=== PATIENT | male | born 1995 | race Caucasian/White ===

== ENCOUNTER 2017-05-23 22:10 | Emergency (ER) | payer SELFPAY ==
[~2017-05-23] VITALS: Ht 157.5 cm; Wt 60.0 kg
[2017-05-23 22:17] VITALS: BP 122/82; PULSE 88; RESP 15; TEMP 98.8; O2SAT 97
[2017-05-23 22:22] VITALS: BP 121/72; PULSE 82; RESP 15; TEMP 98.3; O2SAT 98
--- NOTE | 2017-05-23 23:21 | PD ---
HPI Chief Complaint: Complaint Time Seen by Provider: 23:21 Travel History International Travel<30 days: No Contact w/Intl Traveler<30days: No Traveled to known affect area: No PFSH Past Medical History Medical History: Denies Significant Hx Diminished Hearing: No Past Surgical History Surgical History: No Previous Surgery Social History Alcohol Use: Yes Tobacco Use: No Substance Use: Yes (marijuana) Allergies-Medications (Allergen,Severity, Reaction): Coded Allergies: No Known Allergies (Unverified , 05/23/17) Reported Meds & Prescriptions Reported Meds & Active Scripts Active Levaquin (Levofloxacin) 750 Mg Tablet 1 Tab PO DAILY 14 Days Data Data Last Documented VS Vital Signs Date Time Temp Pulse Resp B/P Pulse Ox O2 Delivery O2 Flow Rate FiO2 05/24/17 00:21 98.5 68 16 116/62 100 05/23/17 22:22 Room Air Orders Us Testicles W Doppler (05/23/17 ) MDM Scripts Levofloxacin (Levaquin)750 Mg Tablet1 Tab PO DAILY 14 Days Ref 0 Prov:Anant Ortiz MD 05/24/17 Candice Garcia May 23, 2017 23:21
--- NOTE | 2017-05-23 23:54 | RADRPT ---
EXAM DATE/TIME: 05/23/2017 23:20 [facility] COMPARISON: No previous studies available for comparison. INDICATIONS : Left testicular pain. MEDICAL HISTORY : Alcohol use. Substance use. Testicular pain. SURGICAL HISTORY : None. ENCOUNTER: Initial ACUITY: 3 days PAIN SCORE: 6/10 LOCATION: Bilateral testicles. MEASUREMENTS: RIGHT TESTICLE: 4.9 x 3.2 x 2.3cm LEFT TESTICLE: 4.4 x 3.0 x 2.4cm FINDINGS: RIGHT TESTICLE: Homogeneous echotexture without intra or extratesticular mass. Blood flow is symmetric and within no rmal limits. No varicocele. Epididymis is within normal limits. Small hydrocele LEFT TESTICLE: Homogeneous echotexture without intra or extratesticular mass. Blood flow is symmetric and within no rmal limits. No varicocele. Epididymis is minimally hyperemic. Small hydrocele SCROTUM: Within normal limits. CONCLUSION: Mild hyperemic left epididymis raises the possibility of epididymitis. No evidence of torsion. Fortino Mendez MD on May 23, 2017 at 23:50 Board Certified Radiologist. This report was verified electronically.
[2017-05-24] MEDS ORDERED: LEVA750T9 PO (00:09)
--- NOTE | 2017-05-24 00:09 | PD ---
HPI Chief Complaint: Complaint Time Seen by Provider: 23:20 Travel History International Travel<30 days: No Contact w/Intl Traveler<30days: No Traveled to known affect area: No History of Present Illness HPI Patient is a 22-year-old male presents with pain at the base of his left testicle for the past week. He was seen at [facility] today and was referred to the main emergency department for an ultrasound of the scrotum to rule out torsion. Patient state is just having mild pain currently denies any dysuria denies any problems stooling. Please see previous provider' s dictation for further information. PFSH Past Medical History Medical History: Denies Significant Hx Diminished Hearing: No Past Surgical History Surgical History: No Previous Surgery Social History Alcohol Use: Yes Tobacco Use: No Substance Use: Yes (marijuana) Allergies-Medications (Allergen,Severity, Reaction): Coded Allergies: No Known Allergies (Unverified , 05/23/17) Reported Meds & Prescriptions Reported Meds & Active Scripts Active Levaquin (Levofloxacin) 750 Mg Tablet 1 Tab PO DAILY 14 Days Review of Systems Except as stated in HPI: all other systems reviewed are Neg Physical Exam Narrative GENERAL: Well-nourished, well-developed patient. SKIN: Focused skin assessment warm/dry. HEAD: Normocephalic. EYES: No scleral icterus. No injection or drainage. NECK: Supple, trachea midline. No JVD or lymphadenopathy. CARDIOVASCULAR: Regular rate and rhythm without murmurs, gallops, or rubs. RESPIRATORY: Breath sounds equal bilaterally. No accessory muscle use. GASTROINTESTINAL: Abdomen soft, non-tender, nondistended. GENITOURINARY: Deferred at this time. MUSCULOSKELETAL: No cyanosis, or edema. BACK: Nontender without obvious deformity. No CVA tenderness. Data Data Last Documented VS Vital Signs Date Time Temp Pulse Resp B/P Pulse Ox O2 Delivery O2 Flow Rate FiO2 05/24/17 00:21 98.5 68 16 116/62 100 05/23/17 22:22 Room Air Orders Us Testicles W Doppler (05/23/17 ) [facility] Medical Decision Making Medical Screen Exam Complete: Yes Emergency Medical Condition: Yes Differential Diagnosis Torsion, epididymitis, orchitis. Narrative Course Last 24 hours Impressions Scrotum Ultrasound 05/23/17 0000 Signed Impressions: Service Date/Time: Tuesday, May 23, 2017 23:20 - CONCLUSION: Mild hyperemic left epididymis raises the possibility of epididymitis. No evidence of torsion. Fortino Mendez MD Patient appears well and comfortable. Discussed symptomatic management antibiotic therapy and returned ED criteria follow-up with primary care physician. Diagnosis Primary Impression: Acute epididymitis Med/Other Pt SpecificInfo: Prescription(s) given Scripts Levofloxacin (Levaquin)750 Mg Tablet1 Tab PO DAILY 14 Days Ref 0 Prov:Anant Ortiz MD 05/24/17 Disposition: 01 DISCHARGE HOME Condition: Stable Anant Ortiz MD May 24, 2017 00:09
[2017-05-24 00:21] VITALS: BP 116/62; TEMP 98.5
== END 2017-05-24 00:55 | disposition home or self-care (01) ==
LOC: NEPD 22:10
DX: N45.1 Epididymitis (principal)
CPT/HCPCS: 76870; 81001; 87086; 87491; 87591; 93975; 99283; 99284